=== PATIENT | male | born 1955 | race Caucasian/White ===

== ENCOUNTER 2020-04-21 19:16 | Emergency (ER) | payer OTHER ==
[2020-04-21 19:25] VITALS: BP 132/82
[2020-04-21] MEDS ORDERED: BUFFERED LIDOCAINE 10 ML SYRINGE SUBQ STA (19:47)
[2020-04-21] MEDS ORDERED: BACITRACIN ZINC OINT 1 PACKET TOP STA (19:47)
[2020-04-21] MEDS ORDERED: TETANUS/DIPHTHERIA/PERTUSSIS 0.5 ML SYRINGE IM ONE (19:48)
--- NOTE | 2020-04-21 19:57 | ED Physician Documentation ---
PD HPI UPPER EXT INJURY - Stated complaint Stated Complaint: LT HAND INJ - Chief complaint Chief Complaint: Laceration - History obtained from History obtained from: Patient - History of Present Illness Location: Left, Finger Type of injury: Laceration Where injury occurred: Home Timing - details: Abrupt onset Associated symptoms: Numbness, Tingling. No: Weakness, Swelling Contributing factors: No: Anticoagulated Similar symptoms before: No diagnosis - Additonal information Additional information: 64-year-old male presents to the emergency department with a 0.5 cm laceration to the palmar side of his left ring finger at the MCP joint. This gentleman was attempting to stab and avocado seed the knife slipped and lacerated the finger. He does endorse some numbness to the left finger however he does have a history of carpal tunnel and previous nerve injury repair to that hand as well. Unknown last tetanus will update today PD PAST MEDICAL HISTORY - Allergies Allergies/Adverse Reactions: Allergies Allergy/AdvReac Type Severity Reaction Status Date / Time Penicillins Allergy Anaphylaxis Verified 04/21/20 19:21 PD ED PE NORMAL - General General: Alert and oriented X 3, No acute distress, Well developed/nourished - Extremities Extremities: No deformity, Other (0.5 cm laceration to the palmar side of the left ring finger at the MCP joint.Subjective numbness and tingling of the finger distally but brisk cap refill. Reduced flexion of the finger at PIP and DIP joint) Results - Vitals Vitals: Vital Signs - 24 hr 04/21/20 04/21/20 19:21 20:23 Temperature 36.9 C Heart Rate 69 Respiratory 16 17 Rate Blood Pressure 132/82 H O2 Saturation 96 Oxygen O2 Source Room air Procedures - Laceration (location) left ring finger Length in cm: 1 Wound type: Linear Neurovascular status: Vascular intact. No: Sensory intact, Motor intact Tendon involvement: Tendon Injury Anesthesia: Lidocaine 1% Wound Preparation: Betadine, Irrigated copiously NS Skin layer closure: Nylon, Size #-0 - enter number (5), Sutures - enter # (3) Other: Patient tolerated well, No complications, Neurovascular intact, Tetanus booster given Complexity: Simple PD MEDICAL DECISION MAKING - ED course Complexity details: reviewed results, d/w patient ED course: 64-year-old male presents to the emergency department with a 1 cm laceration on the palmar surface of his left ring finger at the MCP joint. This was sustained today when attempting to stab and avocado seed for removal - He does report some new numbness and tingling on the lateral side of the finger. Based on location of the laceration he may have some nerve damage. In addition the flexor tendon appears to be partially lacerated as he is not able to fully flex the tendon. - Laceration was closed with 3 nylon sutures. Sutures should be removed in 7 to 10 days. Given clean wound and prompt closure no antibiotics are indicated today - Finger was splinted post repair. However given concern for partial flexor tendon laceration I have advised very close follow-up with his hand surgeon in [place]. - Emergent return precautions were discussed for concerns of infection Departure - Departure Disposition: 01 Home, Self Care Clinical Impression: Finger laceration involving tendon Qualifiers: Encounter type: initial encounter Qualified Code(s): S61.219A - Laceration without foreign body of unspecified finger without damage to nail, initial encounter Instructions: ED Laceration Hand Comments: Melchor the sutures in your finger should be removed in 7 to 10 days. However as we discussed I do suspect that you have a partial flexor tendon laceration as you cannot fully flex the finger as I would expect. You may also have lacerated the nerves somewhat as you do report some numbness and tingling in that digit. Please call your hand surgeon tomorrow for follow-up. Keep your finger in the splint for 1 week. Immobilizing the tendon may help it heal. In 24 hours you may gently wash the laceration with warm soap and water then apply any antibiotic ointment and the dressing as placed today in the emergency department Your tetanus was updated today and is good for 7 to 10 years. Return to the emergency department if you develop fevers, have finger swelling, redness or milky drainage from the laceration
== END 2020-04-21 21:17 | disposition home or self-care (01) ==
LOC: ED 19:16
DX: S61.215A Laceration without foreign body of left ring finger without damage to nail, initial encounter (principal); R20.0 Anesthesia of skin; W26.0XXA Contact with knife, initial encounter; Y93.G3 Activity, cooking and baking; Y92.009 Unspecified place in unspecified non-institutional (private) residence as the place of occurrence of the external cause
CPT/HCPCS: 12001; 90471; 90715; 99281; 99283; A9270